=== PATIENT | female | born 1955 | race Caucasian/White ===

== ENCOUNTER 2021-03-31 14:39 | Emergency (ER) | payer MEDICARE ==
[~2021-03-31 14:39] MED LIST: ATENOLOL-CHLOR1 EACH PO; LEVO-T137 MCG PO; PROZAC40 MG PO
[2021-03-31] MEDS ORDERED: VIBRAMYCIN100 MG PO (17:27)
[2021-03-31] MEDS ORDERED: NORCO 5-325 TA1 EACH PO (17:54)
== END 2021-03-31 19:22 | disposition home or self-care (01) ==
LOC: FER 14:39
DX: S02.5XXA Fracture of tooth (traumatic), initial encounter for closed fracture (principal); S01.511A Laceration without foreign body of lip, initial encounter; S00.83XA Contusion of other part of head, initial encounter; I10 Essential (primary) hypertension; Z23 Encounter for immunization; Z88.2 Allergy status to sulfonamides; W01.0XXA Fall on same level from slipping, tripping and stumbling without subsequent striking against object, initial encounter; Y92.009 Unspecified place in unspecified non-institutional (private) residence as the place of occurrence of the external cause
CPT/HCPCS: 70450; 70486; 72125; 90471; 90715; J2001